=== PATIENT | female | born 1935 | race Caucasian/White ===

== ENCOUNTER 2016-06-01 11:58 | Emergency (ER) | payer MEDICARE, OTHER ==
[~2016-06-01] VITALS: Ht 152.4 cm; Wt 63.6 kg
[~2016-06-01 11:58] MED LIST: ATOR20TA38 PO; BIOT800T PO; DILT180C94 PO; ESCI10TA PO; ESOM40CA PO; FENT1PAT8 TD; FOLI-49 PO; HYDR-3720 PO; LEVO150T64 PO; PRED2.5T3 PO; PREG50CA PO; SEVE800T7 PO; VITA1TAB58 PO
[2016-06-01 12:00] VITALS: Ht 152.4 cm; Wt 63.6 kg
[2016-06-01] MEDS ORDERED: MIDAZOLAM (DRIP) 50 mg/50 mL 50 ML IV STA (12:37)
[2016-06-01] MEDS ORDERED: PROPOFOL 100 ML IV STA (12:37)
[2016-06-01 12:38] LABS: ADD SCAN DIFF NO
[2016-06-01 12:42] LABS: ABNORMAL IP MESSAGE 1; BASOPHIL # 0.1 10^3/ul (0.0-0.1); BASOPHILS % 0.6 % (0.0-2.0); EOSINOPHILS # 0.1 10^3/ul (0.0-0.5); EOSINOPHILS % 0.8 % (0.0-7.0); HEMATOCRIT 36.3 % (37.0-47.0); HEMOGLOBIN 10.1 g/dl (12.0-16.0); LYMPHOCYTES # 5.7 10^3/ul (0.8-2.9); LYMPHOCYTES % 40.8 % (15.0-51.0); MEAN CORPUSCULAR HEMOGLOBIN 32.3 pg (29.0-33.0); MEAN CORPUSCULAR HGB CONC 27.8 g/dl (32.0-37.0); MEAN PLATELET VOLUME 9.6 fl (7.4-10.4); MONOCYTE # 1.6 10^3/ul (0.3-0.9); MONOCYTES % 11.7 % (0.0-11.0); NEUTROPHIL # 6.4 10^3/ul (1.6-7.5); NEUTROPHILS % 45.7 % (39.0-77.0); PLATELET COUNT 277 10^3/UL (140-415); RED BLOOD COUNT 3.13 10^6/ul (4.20-5.40); RED CELL DISTRIBUTION WIDTH 15.7 % (11.5-14.5); WHITE BLOOD COUNT 14.1 10^3/ul (4.8-10.8)
[2016-06-01] MEDS ORDERED: EPINEPHrine 0.1 MG/ML SYG ONE ×2 (12:43→15:50)
[2016-06-01 12:49] LABS: INR 1.12; PROTIME 14.4 Sec (12.2-14.2); PT RATIO 1.1
[2016-06-01 12:50] LABS: PARTIAL THROMBOPLASTIN TIME 26.1 Sec (25.0-35.0)
[2016-06-01] MEDS ORDERED: IODIXANOL LOCM 100 ML BTL ONE ×2 (12:59→13:38)
[2016-06-01] MEDS ORDERED: SOD CHLORIDE 0.9% 100 ML ONE ×2 (12:59→13:38)
[2016-06-01] MEDS ORDERED: IODIXANOL LOCM 50 ML BTL ONE ×2 (13:00→13:38)
[2016-06-01 13:11] LABS: ALBUMIN 3.5 g/dl (3.3-4.9)
[2016-06-01 13:12] LABS: POTASSIUM 5.6 mmol/L (3.5-5.1)
--- NOTE | 2016-06-01 13:13 | RADRPT ---
PROCEDURE: XR Chest. CLINICAL INDICATION: Post intubation. TECHNIQUE: Single frontal view of the chest was obtained COMPARISON: No. FINDINGS: The soft tissues are normal. There are degenerative osteophytes in the thoracic and lumbar spine. The the heart is shifted to the left. The cardiomediastinal silhouette, pulmonary vasculature and h ilar structures are normal. There are vascular calcifications in the left-sided aorta. Attention pne umothorax is noted on the right with subcutaneous emphysema noted on the lower right chest wall. Th e left lung is opacified. The left costophrenic angle is obscured. No acute bony fracture is ident ified. IMPRESSION: 1. 75% right change in pneumothorax with shift of the cardiomediastinal silhouette to the left. 2. The endotracheal tube rests with its distal end in the right mainstem bronchus. 3. Compressive atelectasis with collapse of the left lung. 4. Subcutaneous emphysema on the lower right chest wall and in the supraclavicular areas. 5. Pneumomediastinum. 6. Atherosclerosis of the aortic arch. 7. See follow-up imaging and report performed at 06/01/2016 12:53 p.m. RPTAT:AAJJ Physician Wen Date Time Electronically viewed and signed by Physician Wen on 06/01/2016 13:13 SOTERO/
[2016-06-01 13:14] LABS: CREATININE 4.5 mg/dl (0.44-1.00)
[2016-06-01 13:15] LABS: ALBUMIN/GLOBULIN RATIO 0.94; CALCIUM 8.9 mg/dl (8.4-10.2); TOTAL PROTEIN 7.2 g/dl (6.1-8.1)
--- NOTE | 2016-06-01 13:25 | RADRPT ---
PROCEDURE: XR Chest. CLINICAL INDICATION: Status post intubation and chest tube placement. TECHNIQUE: Single frontal view of the chest was obtained COMPARISON: Chest x-ray 06/01/2016 12:41 p.m. FINDINGS: There is extensive subcutaneous emphysema across the chest and supraclavicular areas. There is norm al peritoneum with free air under the right diaphragm. There are degenerative osteophytes in the tho racic spine. The left ventricle is enlarged. There is pneumomediastinum. The previous 1000 lead i s shifted to the left with opacification of most of the left lung. There has been interval placement of a left-sided thoracostomy tube its tip at the level of the posterior seventh rib. The right elvi g is re-expanded with some persistent infiltrate and atelectasis. Lateral to the right hilum and in the right lower lobe. IMPRESSION: 1. The endotracheal tube rests with its distal end in the right mainstem bronchus and should be repo sitioned. 2. Pneumoperitoneum which may be the result of a ruptured viscus or aggressive resuscitation. Findi ngs can be further assessed with a contrast-enhanced CT scan of the chest, abdomen pelvis if clinica lly indicated. 3. Resolution of the right-sided tension pneumothorax with infiltrates in the right parahilar area right lower lobe and throughout most of the left lung which may reflect aspiration pneumonia. 4. Cardiomegaly with left ventricular enlargement. 5. Large bore central venous catheter entering from a left internal jugular approach with its tip i n the superior vena cava. 6. Extensive subcutaneous emphysema across the chest extending into the supraclavicular areas. 7. No acute bony fracture is identified. 8. There are clips in the left axilla related to prior surgery. 9. Findings were discussed with Dr. Humphries by telephone at 01:15 p.m.. RPTAT:AAJJ Physician Wen Date Time Electronically viewed and signed by Luis Fernando Acevedo Physician on 06/01/2016 13:24 SOTERO/
[2016-06-01 13:26] LABS: TROPONIN-I 0.098 ng/ml (0.00-0.12)
[2016-06-01] MEDS ORDERED: CEFTRIAXONE 2 GM/50 ML (PMX) 50 ML IVPB ONE (13:30)
[2016-06-01] MEDS ORDERED: AMIO100T4 PO (13:40)
[2016-06-01] MEDS ORDERED: POLY17PO3 PO (13:41)
[2016-06-01] MEDS ORDERED: ASCO500S2 PO (13:41)
[2016-06-01] MEDS ORDERED: DULR PR (13:42)
[2016-06-01] MEDS ORDERED: DOCU-159 PO (13:42)
[2016-06-01] MEDS ORDERED: LUTE6TAB PO (13:43)
[2016-06-01] MEDS ORDERED: MEGE20TA6 PO (13:44)
[2016-06-01] MEDS ORDERED: NEPH PO (13:45)
[2016-06-01] MEDS ORDERED: PRED5 PO (13:45)
[2016-06-01] MEDS ORDERED: PREM3 PO (13:47)
--- NOTE | 2016-06-01 14:04 | RADRPT ---
PROCEDURE: CT Brain without. CLINICAL INDICATION: Altered mental status. Evaluate for bleed. TECHNIQUE: A CT of the brain was performed on multidetector high-resolution CT scanner utilizing a xial sections from the skull base through the vertex without contrast. The scan was reviewed in sof t tissue brain and high frequency resolution bone algorithm windows. Images were reviewed on a high -resolution PACS workstation. One or more the following does reduction techniques were utilized: Aut omated exposure control, adjustment of the mA/ or kV according to patient's size, or use of iterativ e reconstruction technique. The exam CTDI = 39.64 mGy and the DLP = 554.95 mGy-cm. COMPARISON: Brain CT 10/03/2015. FINDINGS: The ventricles and sulci are mildly to moderately prominent indicative of volume loss. There is no i ntracranial hemorrhage, mass effect or midline shift. No abnormal intra-axial or extra-axial fluid collections are seen. The kirby/white matter differentiation is preserved. There are moderate to marked scattered foci of hypoattenuation in the white matter, which are nonspe cific in etiology but likely reflect chronic small vessel ischemic changes. Small old lacunar infarc ts are noted in bilateral thalami. There are moderate intracranial vascular calcifications consisten t with atherosclerosis. The visualized paranasal sinuses demonstrate persistent opacification of rig ht sphenoid sinus and interval decrease in partial opacification of left sphenoid sinus. There is sm all hyperdense foci in right sphenoid sinus which may represent fungal elements versus inspissated s ecretion. There is small air-fluid level in the left sphenoid sinus. Partial opacification of bilate ral mastoid air cells are noted. IMPRESSION: 1. No acute intracranial hemorrhage, transcortical infarction or mass effect. 2. Moderate intracranial atherosclerosis and moderate to marked chronic small vessel ischemic dawson es. 3. 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 4. Mild to moderate generalized cerebral volume loss. 5. Persistent opacification of right sphenoid sinus and interval decrease in partial opacification of left sphenoid sinus. Partial opacification of bilateral mastoid air cells. RPTAT: PP .Natalee Foley MD, Date Time Electronically viewed and signed by .Natalee Foley MD, on 06/01/2016 14:04 .N/
--- NOTE | 2016-06-01 14:49 | ERA ---
ER Documentation Chief Complaint Date/Time DATE: 06/01/16 TIME: 14:41 Chief Complaint HPI This is a 81-year-old woman with a history of renal transplantation and general debility secondary to previous gastrointestinal bleeding and anemia presenting with shortness of breath, dyspnea, hypoxia and general altered mental status from [facility]. Patient has end-stage kidney disease and is dialyzed on Wednesday, , Saturdays but was not dialyzed today. Patient was last seen normal at about 9 AM which was about 3 hours prior to arrival. Just prior to arrival her nurse found her dyspneic, altered, and short of breath and called 911, at the scene EMS states she had agonal breathing and hypoxia, they placed her on high flow oxygen with some improvement, blood sugar was checked at the scene and was normal, and patient was transported here. She never lost pulses and did not require chest compressions. Upon arrival she was altered, hypoxic, dyspneic and could not provide HPI. Further HPI provided by family member who was later at the bedside and after reviewing past medical history. ROS All systems reviewed and are negative except as per history of present illness. Medications Home Meds Reported Medications Estrogens Conjugated* (Premarin*) 0.3 Mg Tablet, 0.3 MG PO DAILY, TAB 06/01/16 Multivit/Ca Carb/B Cmplx/Fa* (Maria A-Babatunde*) 1 Tab Tab, 1 TAB PO DAILY, TAB 06/01/16 Prednisone* (Prednisone*) 5 Mg Tab, 5 MG PO QPM, TAB 06/01/16 Megestrol Acetate* (Megestrol Acetate*) 20 Mg Tablet, 10 MG PO DAILY, TAB 06/01/16 Lutein (Lutein) 6 Mg Tablet, 6 MG PO DAILY, TAB 06/01/16 Docusate Sodium* (Docusate Sodium*) 100 Mg Capsule, 100 MG PO DAILY Y for CONSTIPATION, #30 CAP 06/01/16 Bisacodyl* (Bisacodyl*) 10 Mg Supp, 10 MG ME DAILY Y for CONSTIPATION, SUPP 06/01/16 Ascorbic Acid* (Ascorbic Acid*) 500 Mg/5 Ml Syrup, 250 MG PO DAILY, #75 ML 06/01/16 Polyethylene Glycol* (Polyethylene Glycol*) 17 Gm Powd.pack, 17 GM PO DAILY, # 30 PACKET 06/01/16 Amiodarone Hcl* (Amiodarone Hcl*) 100 Mg Tablet, 100 MG PO TID, #30 TAB 06/01/16 Vitamin B Complex (B Complex) 1 Tab.sa Tablet.sa, 1 TAB.SA PO DAILY 10/01/15 Hydrocodone Bit-Acetaminophen* ([place]*) 7.5-325 Tablet, 1 TAB PO BID Y for PAIN , TAB 10/01/15 Folic Acid* (Folic Acid*) 1 Mg Tablet, 1 MG PO DAILY, TAB 10/01/15 Sevelamer Carbonate* (Renvela*) 800 Mg Tablet, 0.8 GM PO WITH MEALS, TAB 10/01/15 Esomeprazole Mag Trihydrate (Nexium) 40 Mg Capsule.dr, 40 MG PO DAILY, #30 CAP 10/01/15 Escitalopram Oxalate* (Lexapro*) 10 Mg Tablet, 10 MG PO DAILY, #30 TAB 10/01/15 Pregabalin* (Lyrica*) 50 Mg Capsule, 50 MG PO QHS, CAP 10/01/15 Levothyroxine Sodium* (Levoxyl*) 150 Mcg Tablet, 150 MCG PO BEFORE BREAKFAST, # 30 TAB 10/01/15 Discontinued Reported Medications Biotin (Biotin) 800 Mcg Tablet, 1000 MCG PO, TAB 10/01/15 Diltiazem Hcl* (Diltiazem XT) 180 Mg Capsule.er, 180 MG PO DAILY, #30 CAP 10/01/15 Prednisone* (Prednisone*) 2.5 Mg Tablet, 2.5 MG PO DAILY, TAB 10/01/15 Atorvastatin Calcium* (Atorvastatin Calcium*) 20 Mg Tablet, 20 MG PO QHS, #30 TAB 10/01/15 Fentanyl Patch* (Fentanyl Patch*) 25 Mcg/Hr Transdermal Patch, 1 PATCH TD Q72H, PATCH 10/01/15 Allergies Allergies: Coded Allergies: No Known Drug Allergies (Verified Allergy, Mild, 10/01/15) PMhx/Soc Renal transplantation, debility, previous gastrointestinal bleeding and supratherapeutic INR levels, paroxysmal atrial fibrillation, hypertension, hypothyroidism, anxiety, end-stage kidney disease hemodialyzed on Wednesday, , Saturdays, mineral bone disease, arthritis, anemia History of Surgery: No Anesthesia Reaction: No Hx Neurological Disorder: No Hx Respiratory Disorders: No Hx Cardiac Disorders: Yes (A-fib, HTN, Dyslipidemia) Hx Psychiatric Problems: No Hx Alcohol Use: No Hx Substance Use: No Hx Tobacco Use: No Smoking Status: Never smoker FmHx Family History: No diabetes Physical Exam Vitals Vital Signs Date Time Temp Pulse Resp B/P Pulse Ox O2 Delivery O2 Flow Rate FiO2 06/01/16 15:00 96 16 85/50 86 Mechanical Ventilator 06/01/16 14:45 97 16 74/52 94 Mechanical Ventilator 06/01/16 14:32 Bag Valve Mask 06/01/16 14:30 Bag Valve Mask 15 06/01/16 14:30 91 16 100/80 94 Mechanical Ventilator 06/01/16 14:00 87 16 112/60 94 Mechanical Ventilator 06/01/16 13:45 94 16 123/72 94 Mechanical Ventilator 06/01/16 13:30 89 16 152/72 94 Mechanical Ventilator 06/01/16 13:15 94 16 182/75 94 Mechanical Ventilator 06/01/16 13:00 144 15 226/79 98 Mechanical Ventilator 06/01/16 12:30 124 16 201/110 100 Mechanical Ventilator 06/01/16 12:27 128 40 238/120 100 Mechanical Ventilator 06/01/16 12:14 106 17 100 100 06/01/16 12:00 115 8 123/74 78 See nurse's notes as I have Physical Exam GENERAL: Elderly, chronically debilitated woman, dyspneic, altered mental status HEENT: Dry mucous membranes, pink conjunctiva, no cervical spine tenderness or step-off deformities, no goiter NEURO: Eyes closed, pupils equal round reactive to light, no facial asymmetry, nonverbal, no focal deficits CARDIAC: Tachycardic and regular, no murmurs rubs or gallops LUNGS: Poor breath sounds bilaterally ABDOMEN: Distended protuberant abdomen both pre-and post intubation, evidence of ventral hernia and well-healed surgical scars over the abdomen, no pulsatile mass SKIN: Warm and dry to touch, no abrasions, some ecchymosis to the right and left upper extremities dorsally EXTREMITIES: Generalized upper and lower extremity edema, callus bilaterally symmetrical, multiple surgical changes over the left proximal thigh and groin as well as the right groin. Firm catheter to the left groin, and a Prateek catheter to the left chest. PSYCH: Unable to assess Result Diagram: 06/01/16 1215 06/01/16 1210 Results 24 hrs Laboratory Tests Test 06/01/16 12:07 06/01/16 12:10 06/01/16 12:15 06/01/16 14:30 Arterial Blood HCO3 25.2mmol/L Arterial Blood Base Excess -0.2mmol/L Arterial Blood Oxygen Saturation 99.3mmHG Colby Test N/A Arterial Blood Gas Puncture Site Right Brachial Arterial Blood Carboxyhemoglobin 0.8% Arterial Blood Date Drawn 06/01/2016 2:39:49 PM Arterial Blood Methemoglobin 0.3% Arterial Blood pCO2 (Temp correct) 45.4mmhg Arterial Blood pH (Temp corrected) 7.363 Arterial Blood pO2 (Temp corrected) 408.2mmHG Blood Gas A-a O2 Differential 259.4mmHg Blood Gas Actual Respiration Rate 16 Blood Gas Low PEEP Setting 5.0cmH2O Blood Gas Modality VENT - AC Blood Gas Notified Time 06/01/2016 2:48:48 PM Blood Gas Notified Whom M.D. Blood Gas Respiration Rate 16.0 Blood Gas Specimen Source Blood arterial Blood Gas Temperature 37.0C Blood Gas Tidal Volume 500.0mL FiO2 100.0% Oxyhemoglobin Percent 98.2% Total Hemoglobin 8.2g/dl Alanine Aminotransferase (ALT/SGPT) 21IU/L Albumin 3.5g/dl Albumin/Globulin Ratio 0.94 Alkaline Phosphatase 90IU/L Anion Gap 19 Aspartate Amino Transf (AST/SGOT) 22IU/L Blood Urea Nitrogen 39mg/dl Calcium Level 8.9mg/dl Carbon Dioxide Level 32mmol/L Chloride Level 96mmol/L Creatinine 4.50mg/dl Direct Bilirubin 0.00mg/dl Globulin 3.70g/dl Glucose Level 154mg/dl Indirect Bilirubin 0.0mg/dl Lactic Acid Level 2.9mmol/L 10.1mmol/L Potassium Level 5.6mmol/L Sodium Level 141mmol/L Total Bilirubin 0.0mg/dl Total Protein 7.2g/dl Troponin I 0.098ng/ml Activated Partial Thromboplast Time 26.1Sec Basophils # 0.110^3/ul Basophils % 0.6% Eosinophils # 0.110^3/ul Eosinophils % 0.8% Hematocrit 36.3% Hemoglobin 10.1g/dl INR International Normalized Ratio 1.12 Lymphocytes # 5.710^3/ul Lymphocytes % 40.8% Mean Corpuscular Hemoglobin 32.3pg Mean Corpuscular Hemoglobin Concent 27.8g/dl Mean Corpuscular Volume 116.0fl Mean Platelet Volume 9.6fl Monocytes # 1.610^3/ul Monocytes % 11.7% Neutrophils # 6.410^3/ul Neutrophils % 45.7% Nucleated Red Blood Cells # 0.010^3/ul Nucleated Red Blood Cells % 0.0/100WBC Platelet Count 45572^3/UL Prothrombin Time 14.4Sec Prothrombin Time Ratio 1.1 Red Blood Count 3.1310^6/ul Red Cell Distribution Width 15.7% White Blood Count 14.110^3/ul Current Medications Medications (Trade) Dose Ordered Sig/Kanwal Route PRN Reason Start Time Stop Time Status Last Admin Dose Admin Propofol 100 ml @ 0 mls/hr ONCE STAT IV 06/01/16 12:37 06/01/16 12:39 DC Midazolam HCl (Versed) 50 ml @ 3 mls/hr ONCE STAT IV 06/01/16 12:37 06/02/16 05:16 Epinephrine 1 mg STK-MED ONCE .ROUTE 06/01/16 12:43 06/01/16 12:44 DC IV Flush 10 ml 10 ml STK-MED ONCE .ROUTE 06/01/16 12:59 06/01/16 13:00 DC 06/01/16 12:59 Sodium Chloride (NS) 100 ml @ ud STK-MED ONCE .ROUTE 06/01/16 12:59 06/01/16 13:00 DC 06/01/16 12:59 Iodixanol (Visipaque Locm) 100 ml STK-MED ONCE .ROUTE 06/01/16 12:59 06/01/16 13:00 DC 06/01/16 12:59 Iodixanol 50 ml 50 ml STK-MED ONCE .ROUTE 06/01/16 13:00 06/01/16 13:01 DC 06/01/16 13:00 Ceftriaxone Sodium (Rocephin) 50 ml @ 100 mls/hr ONCE ONCE IVPB 06/01/16 13:30 06/01/16 13:59 DC IV Flush 10 ml 10 ml STK-MED ONCE .ROUTE 06/01/16 13:38 06/01/16 13:39 DC 06/01/16 13:38 Sodium Chloride (NS) 100 ml @ ud STK-MED ONCE .ROUTE 06/01/16 13:38 06/01/16 13:39 DC 06/01/16 13:38 Iodixanol (Visipaque Locm) 100 ml STK-MED ONCE .ROUTE 06/01/16 13:38 06/01/16 13:39 DC 06/01/16 13:38 Iodixanol 50 ml 50 ml STK-MED ONCE .ROUTE 06/01/16 13:38 06/01/16 13:39 DC 06/01/16 13:38 Norepinephrine 250 ml @ 1.875 mls/ hr TITRATE IV 06/01/16 15:00 06/01/16 15:26 Norepinephrine (Levophed) 250 ml @ ud STK-MED ONCE .ROUTE 06/01/16 14:50 06/01/16 14:51 DC IV Flush (NS 3 ml) 3 ml PER PROTOCOL IV 06/01/16 15:30 Ondansetron HCl (Zofran Inj) 4 mg Q6H PRN IV NAUSEA AND/OR VOMITING 06/01/16 15:30 Acetaminophen (Tylenol Tab) 650 mg Q6H PRN PO PAIN LEVEL 1-3 OR FEVER 06/01/16 15:30 Acetaminophen/ Hydrocodone Bitart ([place] (5/325)) 1 tab Q6H PRN PO MODERATE PAIN LEVEL 4-6 06/01/16 15:30 Morphine Sulfate (morphine) 2 mg Q4H PRN IV SEVERE PAIN LEVEL 7-10 06/01/16 15:30 Docusate Sodium (Colace) 100 mg Q12H PRN PO CONSTIPATION 06/01/16 15:30 Magnesium Hydroxide (Milk Of Mag) 30 ml DAILY PRN PO CONSTIPATION 06/01/16 15:30 Sodium Biphosphate/ Sodium Phosphate (Fleet Enema) 133 ml DAILY PRN ME CONSTIPATION 06/01/16 15:30 Pantoprazole (Protonix Iv) 40 mg DAILY@06 IV 06/02/16 06:00 Heparin Sodium (Porcine) 5000 unit 5,000 unit Q12 SC 06/01/16 21:00 Sodium Chloride (1/2 NS) 1,000 ml @ 75 mls/hr [id number] IV 06/01/16 15:29 Lorazepam (Ativan) 0.5 mg Q6H PRN IV ANXIETY 06/01/16 15:30 Albuterol/ Ipratropium (Duoneb) 3 ml Q4H RESP THERAPY PRN HHN SHORTNESS OF BREATH 06/01/16 15:30 Vancomycin HCl (Vanco Iv Per Pharmacy) VANCOMYCIN PER PHARMACY NOTE XX 06/01/16 15:30 Hydralazine HCl (Apresoline) 10 mg Q6H PRN IV ELEVATED BLOOD PRESSURE 06/01/16 15:30 Nitroglycerin 1 tab 1 tab Q5M PRN SL ANGINA 06/01/16 15:30 Sodium Chloride 1,000 ml @ 1,000 mls/hr Q1H IV 06/01/16 15:29 06/01/16 17:28 DC Norepinephrine 250 ml @ 7.5 mls/hr PER PROTOCOL IV 06/01/16 15:30 Imipenem/ Cilastatin Sodium (Primaxin 500 Mg/ 100 ml (Pmx)) 100 ml @ 100 mls/hr Q12 IVPB 06/01/16 21:00 Insulin Aspart (Novolog Insulin Pen) NOVOLOG *MILD* ALGORITHM WITH MEALS BEDTIME SC 06/01/16 18:00 UNV Insulin Aspart (Novolog Insulin Pen) NOVOLOG *MILD* ALGORI... Q4 SC 06/01/16 17:00 Miscellaneous Information (* Miscellaneous Pharmacy Order) HYPOGLYCEMIA PROTOCOL w... ONCE ONCE XX 06/01/16 15:30 06/01/16 16:08 DC Miscellaneous Information (* Miscellaneous Pharmacy Order) Discontinue Glyburide, Glipizide,... ONCE ONCE XX 06/01/16 15:30 06/01/16 16:08 DC Miscellaneous Information (* Miscellaneous Pharmacy Order) Discontinue all previ... ONCE ONCE XX 06/01/16 15:30 06/01/16 16:08 DC Amiodarone HCl (Cordarone) 100 mg TID PO 06/01/16 21:00 Ascorbic Acid (Vitamin C) 250 mg DAILY PO 06/02/16 09:00 Bisacodyl (Dulcolax Supp) 10 mg DAILY PRN ME CONSTIPATION 06/01/16 15:30 Escitalopram Oxalate (Lexapro) 10 mg DAILY PO 06/02/16 09:00 Folic Acid (Folic Acid) 1 mg DAILY PO 06/02/16 09:00 Levothyroxine Sodium (Synthroid) 150 mcg BEFORE BREAKFAST PO 06/02/16 07:00 Multivit/Ca Carb/ B Cmplx/FA/Prenat (Maria A-Babatunde) 1 tab DAILY PO 06/02/16 09:00 Polyethylene Glycol (Miralax) 17 gm DAILY PO 06/02/16 09:00 Prednisone (Prednisone) 5 mg QPM PO 06/01/16 21:00 Pregabalin (Lyrica) 50 mg QHS PO 06/01/16 21:00 Sevelamer Carbonate (Renvela) 0.8 gm WITH MEALS PO 06/01/16 18:00 Epinephrine 1 mg STK-MED ONCE .ROUTE 06/01/16 15:50 06/01/16 15:51 DC Miscellaneous Information 1 ea NOTE XX 06/01/16 16:30 Glucose (Glutose) 15 gm Q15M PRN PO DECREASED GLUCOSE 06/01/16 16:30 Glucose (Glutose) 22.5 gm Q15M PRN PO DECREASED GLUCOSE 06/01/16 16:30 Dextrose (D50w Syringe) 25 ml Q15M PRN IV DECREASED GLUCOSE 06/01/16 16:30 Dextrose (D50w Syringe) 50 ml Q15M PRN IV DECREASED GLUCOSE 06/01/16 16:30 Glucagon (Glucagen) 1 mg Q15M PRN IM DECREASED GLUCOSE 06/01/16 16:30 Glucose 15 gm 15 gm Q15M PRN BUCCAL DECREASED GLUCOSE 06/01/16 16:30 Vancomycin HCl (Vancocin) 250 ml @ 125 mls/hr ONCE IVPB 06/01/16 16:30 06/01/16 18:29 Procedures/MDM IV line was established patient was placed on cardiac catheterization technician. Rhythm strip revealed a wide complex tachycardia at about 120 bpm. Patient was afebrile and altered. Given the patient's presentation at home and here in the ED I made the decision to intubate the patient. Endotracheal Intubation by me: Pre assessment performed. See preceding note for details. Pre-oxygenation performed with 100% oxygen RSI: Performed with etomidate 20 mg IV 1 Blade: Mac 4 ET Tube: 7.5 cm Depth: 25 cm at the lip Intubation confirmed by colorimetric CO2, poor breath sounds bilaterally. Shortly after intubation I noted bright blood in the ET tube and it became obvious the ET tube dislodged. I placed an oral airway and then began positive pressure ventilation using high flow oxygen and BVM to assist breathing and ventilation. Patient's hypoxia continued momentarily and she did developed worsening abdominal distention. I reintubated the patient successfully and placed a 7.0 cm ET tube, initially again at 25 cm depth which was later pulled back to 23 centimeters depth. Endotracheal Intubation by me: Pre assessment performed. See preceding note for details. Pre-oxygenation performed with 100% oxygen RSI: Performed w/o complication or hypoxic events. Medications as ordered. Blade: Mac 4 ET Tube: 7 cm Depth: 25 cm at the lip Intubation confirmed by colorimetric CO2, rhonchorous breath sounds bilaterally. EKG #1 performed, read by me revealed a wide-complex atrial fibrillation with rapid ventricular rate 111 bpm, left axis deviation and a right bundle branch block, QRS duration 152 ms, no concerning ST elevations or depressions noted. Shortly after intubating the patient she lost pulses and became bradycardic and developed pulseless electrical activity. I ordered high-quality chest compressions and immediately began advanced cardiac life support. She was given 3 doses of epinephrine 1 mg IV each. Please refer to the first resuscitation log for full list of medication, times, and dosages. She regained strong pulses and a good blood pressure. She was able to open her eyes and had movement of the upper and lower extremities. She is not a candidate for hypothermia protocol. After she got her initial ED chest x-ray, she was rushed to the radiology department for CT imaging. Chest X-ray 1V Interpreted by me: Intubated the right mainstem bronchus. There is air under the right hemidiaphragm and a very large right tension pneumothorax with both tracheal and mediastinal deviation to the left. There is also noted to be pneumomediastinum consistent with recent pneumothorax. Chest Tube Placement by me: Patient consented, sterilely draped, full prep, gown, glove, mask, time out performed. Anesthesia: None Location: Mid-Anterior right axillary Line, approximate 5th intercostal Device: 36 Kiswahili chest tube Technique: Vertical incision, blunt dissection above the superior rib border , tactile confirmation Results: Chest tube fogging and about 500 cc of straw-colored pleural fluid was obtained with a large gush of air, which was obviously under tension. Secured with suture and taping. No complications. Attached to [facility]. EKG #2 post intubation, resuscitation, and chest tube placement performed, read by me revealed an atrial fibrillation with rapid ventricular rate at 114 bpm, left axis deviation and a right bundle branch block, no concerning ST elevations or depressions noted. Chest X-ray, post intubation and post tube thoracostomy placement 1V Interpreted by me: Pneumothorax diminished to 3 cm on the right side, chest tube in pleural space facing cephalad. Bilateral lower pulmonary infiltrates were noted by me Normal soft tissue. ET tube was in the right mainstem bronchus, there was good reexpansion of the right lung, and mediastinal structures were in the center of the chest. CBC revealed a leukocytosis otherwise unremarkable, electrolytes revealed renal failure and mild hyperkalemia 5.6, liver function tests were unremarkable, troponin was negative, coagulation profile was unremarkable with an INR of 1.1. ABG post intubation and while on mechanical ventilator prior to cardiac arrest revealed a pH of 7.36, PCO2 45, PO2 [address] scan of the brain was negative for acute bleed mass or shift. Please refer to radiologist dictation for full report. I consulted the cardiothoracic surgeon Dr. Crespo after chest tube was placed and secured, we spoke about the patient's presentation and symptomatology and possible pulmonary embolism diagnosis. He kindly agreed to consult the patient and manage the chest tube. CT angiogram of the chest was performed that was negative for pulmonary embolism or aortic injury. Please refer to radiologist dictation for full report. I also immediately consulted general surgeon director of recruitment and admissions Dr. Jolly, initial call placed at 1500, given my suspicion for severe pneumoperitoneum and possible bowel perforation. CT scan of the abdomen and pelvis with IV contrast was performed which revealed multiple findings including massive tension pneumoperitoneum with compression of the IVC. There was also severe diffuse pneumomediastinum and air dissecting into the retroperitoneum. 2 separate radiologist did review this CT scan images and they could not find bowel perforation and suspected that her large pneumothorax dissected through the subcutaneous tissue of the chest and abdomen and caused this tension pneumoperitoneum. Please refer to radiologist dictation for full report. Patient was admitted to the hospitalist team to the intensive care unit. Medical management and decision making all continued down here in the emergency department and was directed by me. I also consulted the social and political studies professor Dr. Garcia regarding the patient's presentation and symptomatology, given the patient's IV contrast dye load I recommended emergent hemodialysis and he agreed. He kindly agreed to hemodialyzed the patient once her condition stabilizes. Multiple calls were placed to the general surgeon director of recruitment and admissions, I also attempted speaking with other affiliated general surgeons regarding the patient's current condition and need for open laparotomy. Third EKG was performed, read by me revealed a sinus rhythm at 67 bpm with a first-degree atrioventricular block and a right bundle branch block, left axis deviation, no concerning ST elevations or depressions noted. Central Line Placement by me: Patient consented, sterilely draped, full prep, gown, glove, mask, time out performed. Anesthesia: 1% lidocaine locally Location: Right femoral vein Device: Multiple lumen Technique: Seldinger technique. Secured with suture. Results: Venous return from all ports with easy saline flush. No complications. The entire guide wire retrieved and disposed of. While waiting for general surgery's input patient developed slow pulseless electrical activity and required another rounded of advanced cardiac life support and continued high-quality chest compressions. Initial most dominant rhythm throughout this cardiac arrest was pulseless electrical activity with a slow rate of about 30-50 complexes per minute. I treated medically with multiple doses of epinephrine. Please refer to the resuscitation log for full list of medications, times, and dosages. Bedside ED Ultrasound was performed during advanced cardiac life support although images were unobtainable as patient had significant pneumomediastinum and free subcutaneous air along the chest. Needle decompression was performed by me at the bedside during resuscitation with the large 18-gauge needle catheter. There is large volume air removed and abdominal distention and protuberance improved, although she remained in PEA and was ultimately pronounced by me at 1620 June 01, 2016. I did speak to the on-call surgeon while in route regarding the patient's presentation, symptomatology, and multiple CT scan findings. He recommended prior to the OR we attempt abdominal needle decompression near or at the umbilicus. On-call general surgeon came to the emergency department for emergent open laparotomy although patient was pronounced just prior to his arrival. Critical Care: Time: 90 minutes, this was time separate from other procedures. Treatments/Evaluations: Close monitoring and treatment of unstable vital signs, cardiorespiratory, and neurologic status, while maintaining tight balance of fluid, respiratory, and cardiac interventions. Departure Diagnosis: Primary Impression: Cardiac arrest Additional Impressions: Pneumothorax Qualified Code: J93.0 - Spontaneous tension pneumothorax Pneumomediastinum Pneumoperitoneum Respiratory failure Qualified Code: J96.01 - Acute respiratory failure with hypoxia and hypercapnia End stage kidney disease Condition: Critical JOHN ALLEN MD Jun 01, 2016 14:49
[2016-06-01] MEDS ORDERED: NORepinephrine 8MG/250 ML (PMX 250 ML ONE (14:50)
[2016-06-01 15:00] VITALS: BP 85/50; PULSE 96; RESP 16
[2016-06-01] MEDS ORDERED: NORepinephrine 8MG/250 ML (PMX 250 ML IV SCH ×2 (15:00→15:30)
--- NOTE | 2016-06-01 15:07 | RADRPT ---
PROCEDURE: CTA Chest. CLINICAL INDICATION: Evaluate for pulmonary embolism. TECHNIQUE: The study was performed utilizing a high-resolution multidetector CT scanner. Direct sp iral 1.25 mm axial sections were obtained from the thoracic inlet to the upper abdomen with the use of 125 cc of the CP 11/06/2019 nonionic intravenous contrast material and reformatted at 3 mm. Coron al reformations were obtained. The images were reviewed on a PACS workstation. CTDI: 42.25 and DLP: 1107.7 One or more of the following dose reduction techniques were used: - Automated exposure control. - Adjustment of the mA and/or kV according to patient size. Use of iterative reconstruction technique. COMPARISON: Chest x-ray 06/01/2016 12:53 p.m. FINDINGS: The main pulmonary artery and pulmonary artery outflow tracts are patent with no central o r segmental pulmonary emboli identified. The heart is mildly enlarged. No pericardial effusion is present. The pulmonary vasculature is normal. There are vascular calcifications in the thoracic and upper abdominal aorta without evidence of an a ortic aneurysm. A central venous catheter enters from a left internal jugular approach with its tip in the superior vena cava. There is a loculated left pleural effusion. There is a right-sided chest tube entering the posterior right axillary line projecting superior to the right diaphragm. There is a residual 10% pneumothorax. There is a 1 mm calcified nodule in the medial aspect of the superior segment of the right lower lobe. There ground-glass infiltrates in t he right lung. There is a wedge shaped peripheral density in the dorsal periphery of the right middle lobe. This li cheikh represents atelectasis. There are additional areas of peripheral atelectasis in the right lower lobe. There is pneumomediastinum. There is extensive subcutaneous emphysema across the chest. There is an endotracheal tube in place with its distal to the still lies in the right mainstem bronc hus. This should be repositioned. There are bronchograms and infiltrate in the left lower lobe. There is a moderate size hiatal hernia. No enlarged mediastinal or hilar lymph nodes are identified. No enlarged axillary or supraclavicula r lymph nodes are identified. There is pneumoperitoneum. There is an air-fluid level adjacent to the right lobe of the liver. The spleen is unremarkable. There is a partially visualized small left kidney with a 1.4 cm partially visualized benign cyst in the dorsal upper third of the left kidney. There are additional smaller benign cysts seen in the up per half of the left kidney. The right kidney is only partially visualized with no focal mass noted . The adrenal glands are unremarkable. The bony elements are normal. IMPRESSION: 1. The extensive subcutaneous emphysema is noted across the chest extending into the supraclavicula r areas with a right-sided thoracostomy tube identified with its tip superior to the right diaphragm . There is an associated 10% right-sided pneumothorax. 2. There is a loculated right pleural effusion with consolidative infiltrate and a air bronchograms suspicious for aspiration pneumonia in the left lower lobe. 3. Pneumomediastinum. 4. No central or segmental pulmonary emboli identified. 5. Moderate size hiatal hernia. 6. Pneumoperitoneum. The exact cause is unclear from this study. 7. Small scarred left kidney with benign cyst in the upper third of the left kidney. 8. Mild cardiomegaly. 9. Atherosclerotic vascular disease. 10. The endotracheal tube is not placed in the right mainstem bronchus. 11. A large bore central venous catheter enters from a left internal jugular approach with its tip in the superior vena cava. Findings were phoned to Dr. Boyd immediately following interpretati on of the study at 03:00 p.m.. RPTAT:AAJJ Physician Wen Date Time Electronically viewed and signed by Physician Wen on 06/01/2016 15:07 JM/
[2016-06-01] MEDS ORDERED: SOD CHLORIDE 0.45% 1,000 ML IV SCH (15:29)
[2016-06-01] MEDS ORDERED: SOD CHLORIDE 0.9% 1,000 ML IV SCH (15:29)
[2016-06-01] MEDS ORDERED: NA PHOSPHATE/BIPHOS 133 ML ENEMA PR PRN (15:30)
[2016-06-01] MEDS ORDERED: HYDROCODONE/APAP (5/325) TAB PO PRN (15:30)
[2016-06-01] MEDS ORDERED: DOCUSATE SODIUM 100 MG CAP PO PRN (15:30)
[2016-06-01] MEDS ORDERED: morphine 2 MG INJ IV PRN (15:30)
[2016-06-01] MEDS ORDERED: ALBUTEROL/IPRATROPIUM (NEB) 3 ML AMP HHN PRN (15:30)
[2016-06-01] MEDS ORDERED: NITROGLYCERIN (SL) 0.4 MG TAB SL PRN (15:30)
[2016-06-01] MEDS ORDERED: ACETAMINOPHEN 325 MG TAB PO PRN (15:30)
[2016-06-01] MEDS ORDERED: hydrALAzine 20 MG INJ IV PRN (15:30)
[2016-06-01] MEDS ORDERED: MAGNESIUM HYDROXIDE 30ML CUP PO PRN (15:30)
[2016-06-01] MEDS ORDERED: NACL 0.9% 3 ML SYG IV SCH (15:30)
[2016-06-01] MEDS ORDERED: LORAZEPAM 2 MG INJ IV PRN (15:30)
[2016-06-01] MEDS ORDERED: ONDANSETRON 4 MG INJ IV PRN (15:30)
[2016-06-01] MEDS ORDERED: VANCOMYCIN IV PER PHARMACY XX SCH (15:30)
[2016-06-01] MEDS ORDERED: BISACODYL 10 MG SUPP PR PRN (15:30)
--- NOTE | 2016-06-01 15:36 | RADRPT ---
PROCEDURE: CT Abdomen and Pelvis with contrast. CLINICAL INDICATION: Abdominal distension. TECHNIQUE: Multiple contiguous axial CT images of the abdomen and pelvis were obtained following t he administration of 125 cc of Visipaque 320. Coronal and sagittal reconstructions were also perfor med. CTDIvol (mGy): 42.25, 11.19, 12.04; Total Exam DLP (mGy-cm): 1107.72. One or more of the following dose reduction techniques were utilized: - Automated exposure control. - Adjustment of the mA and/or kV according to patient size. - Use of iterative reconstruction technique. COMPARISON: Chest x-ray 06/01/2016. CT pelvis 02/04/2016. Barium enema 10/04/2015. CT abdomen/pe lvis 10/02/2015. FINDINGS: Limited imaging of the lower thorax demonstrates a small residual pneumothorax. A right chest tube is in place. There is a small moderate left pleural effusion. Diffuse pneumomediastinum is observe d. Massive subcutaneous emphysema of the chest wall is present. Massive pneumoperitoneum is present. Mass effect upon the abdominal viscera and IVC is observed. R etroperitoneal air is also present. The stomach is collapsed. The small intestines are unremarkabl e. The liver and spleen are unremarkable. Mild gallbladder wall edema is observed. The pancreas i s unremarkable. Mild hyperenhancement of the adrenal glands is present. Small multicystic kidneys are present. There is no hydronephrosis. The abdominal aorta is normal in caliber with atherosclerotic calcification. A moderate hiatal hernia is present. A right lower quadrant renal transplant is present. There is a left lateral abdominal wall hernia containing numerous loops of small intestines along with a porti on of the descending colon. The hernia is unchanged from prior examination. There is no associated intestinal obstruction. Free air are seen within the hernia sac. The bladder is collapsed. The uterus and adnexa are unremarkable. Lumbar spinal fusion hardware is in place. Subcutaneous emphysema of the body wall is present. IMPRESSION: Massive pneumoperitoneum. Mass effect upon the abdominal viscera and IVC is observed. Correlate fo r additional signs of tension pneumoperitoneum. Imaging findings may be a result of dissection of ai r from pneumothorax/pneumomediastinum. Right chest tube with small residual pneumothorax. Pneumomediastinum with air dissecting into the r etroperitoneum is also present along with massive subcutaneous emphysema of the chest and abdomen. Critical results discussed with Dr. Humphries at approximately 1530 hours. RPTAT: HLST .Autumn Hoffmann MD, Date Time Electronically viewed and signed by .Autumn Hoffmann MD, on 06/01/2016 15:35 .T/
--- NOTE | 2016-06-01 15:59 | CONS ---
Date/Time of Note Date/Time of Note DATE: 06/01/16 TIME: 15:53 Assessment/Plan Assessment/Plan Additional Assessment/Plan Chest x-ray was reviewed from today prior to placement of chest tube which is showing a total right pneumothorax. CT chest was reviewed also which is showing pneumoperitoneum as well as pneumothorax on the right side chest x-ray was reviewed post intubation as well as post chest tube placement which is showing good reexpansion of the right lung. Assessment recommendations; 1. Patient admitted with cardiac arrest underwent prolonged CPR. 2. Severe hypotension on high-dose pressor support. Patient adequately fluid resuscitated. 3. History of end-stage renal disease on hemodialysis. Finish dialysis session early this morning. 4. History of hypertension. 5. Pneumoperitoneum likely tracking of air from the pneumothorax. 6. At this point it is difficult to ascertain any degree of hypoxic brain injury. Continue current supportive care. Continue current ventilator settings. Perform an ABG in about an hour. Initial ABG was reviewed patient is not exhibiting any severe metabolic acidosis. Continue broad-spectrum antibiotic coverage. Surgical consult as well as nephrology consult is pending. Prognosis is extremely poor. I did have a detailed discussion with patient's son in the emergency room and apprised him of her condition. Consultation Date/Type/Reason Admit Date/Time Date of Consultation: Jun 01, 2016 Type of Consultation: Pulmonary/critical care Reason for Consultation Pulmonary critical care consultation obtained for management of severe shock and respiratory failure. History presenting; patient is a 78-year-old lady who was brought in via EMS to the hospital after the patient was found unresponsive at home EMS were called and patient did not have a pulse CPR was initiated and was continued en route to the hospital. According to medical records it lasted a good 20-30 minutes. Patient also had a second episode of cardiac arrest requiring another bleed CPR with revival of vital signs. A chest x-ray was done which showed a total right pneumothorax subsequent to chest tube was placed in. Patient also developed significant pneumoperitoneum. For the time I saw the patient the patient is orally intubated and has fixed dilated pupils. Right-sided chest tube is in place. Patient is completely unresponsive. Maintained on high-dose pressor support. Past medical history; 1. History of renal failure on hemodialysis. Patient had hemodialysis early this morning. 2. History of apparent renal transplant. Next 3. History of laparotomy. 4. History of hypertension. Medications; were reviewed. Allergies; none. Social history; noncontributory. Family history; patient has 3 children she lives by herself. Occupational history; not available. Review of systems; currently not available. General examination; elderly lady, or intubated unresponsive. Social History Smoking Status: Never smoker Exam/Review of Systems Vital Signs Vitals Vital Signs Date Time Temp Pulse Resp B/P Pulse Ox O2 Delivery O2 Flow Rate FiO2 06/01/16 12:00 115 8 123/74 78 Exam HEENT examination; supple neck, positive JVD. No lymphadenopathy. Orally intubated. Pupils are dilated and fixed. Patient does have multiple carious teeth. No neck masses felt. Chest examination; diminished breath sounds throughout. There is bilateral sub- cutaneous emphysema involving the chest wall. Right-sided chest tube is in place. S1-S2 audible, no murmurs. Regular rhythm. Abdomen examination; protuberant, multiple well-healed scars are present. There is a sub-cutaneous emphysema felt along the anterior abdominal wall. Bowel sounds are absent. Extremity examination; patient has extensive ecchymosis involving all 4 extremities. Pulses are palpable. INDUSTRIAL RENDERER examination; patient is unresponsive. Results Result Diagram: 06/01/16 1215 06/01/16 1210 Results 24 hrs Laboratory Tests Test 06/01/16 12:10 06/01/16 12:15 06/01/16 14:30 Alanine Aminotransferase (ALT/SGPT) 21 Albumin 3.5 Albumin/Globulin Ratio 0.94 Alkaline Phosphatase 90 Anion Gap 19 H Aspartate Amino Transf (AST/SGOT) 22 Blood Urea Nitrogen 39 H Calcium Level 8.9 Carbon Dioxide Level 32 H Chloride Level 96 L Creatinine 4.50 H Direct Bilirubin 0.00 Globulin 3.70 H Glucose Level 154 Indirect Bilirubin 0.0 Lactic Acid Level 2.9 H 10.1 *H Potassium Level 5.6 H Sodium Level 141 Total Bilirubin 0.0 L Total Protein 7.2 Troponin I 0.098 Activated Partial Thromboplast Time 26.1 Basophils # 0.1 Basophils % 0.6 Eosinophils # 0.1 Eosinophils % 0.8 Hematocrit 36.3 #L Hemoglobin 10.1 #L INR International Normalized Ratio 1.12 Lymphocytes # 5.7 H Lymphocytes % 40.8 Mean Corpuscular Hemoglobin 32.3 Mean Corpuscular Hemoglobin Concent 27.8 L Mean Corpuscular Volume 116.0 #H Mean Platelet Volume 9.6 # Monocytes # 1.6 H Monocytes % 11.7 H Neutrophils # 6.4 Neutrophils % 45.7 Nucleated Red Blood Cells # 0.0 Nucleated Red Blood Cells % 0.0 Platelet Count 277 Prothrombin Time 14.4 H Prothrombin Time Ratio 1.1 Red Blood Count 3.13 #L Red Cell Distribution Width 15.7 H White Blood Count 14.1 #H Medications Medications Current Medications Norepinephrine (Levophed) 250 ml @ 1.875 mls/ hr TITRATE IV Last administered on 06/01/16t 15:26; Admin Dose 1.875 MLS/HR; Start 06/01/16 at 15:00 Ondansetron HCl (Zofran Inj) 4 mg Q6H PRN IV NAUSEA AND/OR VOMITING; Start at 15:30; Status UNV Acetaminophen (Tylenol Tab) 650 mg Q6H PRN PO PAIN LEVEL 1-3 OR FEVER; Start at 15:30; Status UNV Acetaminophen/ Hydrocodone Bitart (Brandt (5/325)) 1 tab Q6H PRN PO MODERATE PAIN LEVEL 4-6; Start 06/01/16 at 15:30; Status UNV Morphine Sulfate (morphine) 2 mg Q4H PRN IV SEVERE PAIN LEVEL 7-10; Start 06/01 at 15:30; Status UNV Docusate Sodium (Colace) 100 mg Q12H PRN PO CONSTIPATION; Start 06/01/16 at 15: 30; Status UNV Magnesium Hydroxide (Milk Of Mag) 30 ml DAILY PRN PO CONSTIPATION; Start at 15:30; Status UNV Sodium Biphosphate/ Sodium Phosphate (Fleet Enema) 133 ml DAILY PRN LA CONSTIPATION; Start 06/01/16 at 15:30; Status UNV Pantoprazole (Protonix Iv) 40 mg DAILY@06 IV ; Start 06/02/16 at 06:00; Status UNV Heparin Sodium (Porcine) 5000 unit 5,000 unit Q12 SC ; Start 06/01/16 at 21:00; Status UNV Sodium Chloride (1/2 NS) 1,000 ml @ 75 mls/hr [id number] IV ; Start 06/01/16 at 15 :29; Status UNV Lorazepam (Ativan) 0.5 mg Q6H PRN IV ANXIETY; Start 06/01/16 at 15:30; Status UNV Vancomycin HCl (Vanco Iv Per Pharmacy) VANCOMYCIN PER PHARMACY NOTE XX ; Start 06/01/16 at 15:30; Status UNV Hydralazine HCl (Apresoline) 10 mg Q6H PRN IV ELEVATED BLOOD PRESSURE; Start at 15:30; Status UNV Nitroglycerin 1 tab 1 tab Q5M PRN SL ANGINA; Start 06/01/16 at 15:30; Status UNV Sodium Chloride 1,000 ml @ 1,000 mls/hr Q1H IV ; Start 06/01/16 at 15:29; Stop 06/01/16 at 17:28; Status UNV Imipenem/ Cilastatin Sodium (Primaxin 500 Mg/ 100 ml (Pmx)) 100 ml @ 100 mls/ hr Q6 IVPB ; Start 06/01/16 at 18:00; Status UNV Insulin Aspart (Novolog Insulin Pen) NOVOLOG *MILD* ALGORI... Q4 SC ; Start at 17:00; Status UNV Miscellaneous Information (* Miscellaneous Pharmacy Order) HYPOGLYCEMIA PROTOCOL w... ONCE ONCE XX ; Start 06/01/16 at 15:30; Stop 06/01/16 at 15:31; Status UNV Miscellaneous Information (* Miscellaneous Pharmacy Order) Discontinue Glyburide , Glipizide,... ONCE ONCE XX ; Start 06/01/16 at 15:30; Stop 06/01/16 at 15:31 ; Status UNV Miscellaneous Information (* Miscellaneous Pharmacy Order) Discontinue all previ... ONCE ONCE XX ; Start 06/01/16 at 15:30; Stop 06/01/16 at 15:31; Status UNV Amiodarone HCl (Cordarone) 100 mg TID PO ; Start 06/01/16 at 21:00; Status UNV Ascorbic Acid (Vitamin C) 250 mg DAILY PO ; Start 06/02/16 at 09:00; Status UNV Bisacodyl (Dulcolax Supp) 10 mg DAILY PRN LA CONSTIPATION; Start 06/01/16 at 15 :30; Status UNV Escitalopram Oxalate (Lexapro) 10 mg DAILY PO ; Start 06/02/16 at 09:00; Status UNV Folic Acid (Folic Acid) 1 mg DAILY PO ; Start 06/02/16 at 09:00; Status UNV Multivit/Ca Carb/ B Cmplx/FA/Prenat (Maria A-Babatunde) 1 tab DAILY PO ; Start 06/02/16 at 09:00; Status UNV Polyethylene Glycol (Miralax) 17 gm DAILY PO ; Start 06/02/16 at 09:00; Status UNV Prednisone (Prednisone) 5 mg QPM PO ; Start 06/01/16 at 21:00; Status UNV Pregabalin (Lyrica) 50 mg QHS PO ; Start 06/01/16 at 21:00; Status UNV CHRISTIANO MUKHERJEE Jun 01, 2016 15:59
--- NOTE | 2016-06-01 16:15 | RADRPT ---
PROCEDURE: XR Chest. CLINICAL INDICATION: Endotracheal tube position check. TECHNIQUE: Single frontal view of the chest was obtained COMPARISON: Chest x-ray 06/01/2016. FINDINGS: The endotracheal tube is not well positioned at T5. No other interval changes are noted. IMPRESSION: 1. Endotracheal tube is well-positioned at T5 about 2 cm superior to the samuel. 2. Otherwise, stable chest x-ray. RPTAT:AAJJ Physician Wen Date Time Electronically viewed and signed by Luis Fernando Acevedo Physician on 06/01/2016 16:15 SOTERO/
--- NOTE | 2016-06-01 16:15 | RADRPT ---
PROCEDURE: XR Chest. CLINICAL INDICATION: Status post intubation. TECHNIQUE: Single frontal view of the chest was obtained COMPARISON: Chest x-ray 06/01/2016 12:53 p.m. FINDINGS: The endotracheal tube should be withdrawn about 4 cm for better positioning near T3. The rest with its distal end in the right mainstem bronchus at this time. Heart is enlarged. The left lung is pa rtially regenerated with persistent bilateral perihilar infiltrates present. There is consolidative infiltrate in the left lower lobe. There is a right-sided thoracostomy tube in place. There is a large bore central venous catheter. The heart is enlarged. There is subcutaneous emphysema across the chest and neck. IMPRESSION: 1. The endotracheal tube should be withdrawn 45 cm for better positioning near T3. 2. Subcutaneous emphysema. 3. The thoracostomy tube remains in good position with a 3% right lateral pneumothorax. 4. Interval decrease in the size of the left pleural effusion with persistent consolidative infiltr ate in the left lower lobe and bilateral perihilar interstitial infiltrates still present. 5. An NG tube is well positioned distal to the GE junction. 6. Pneumoperitoneum. 7. The large bore central venous catheter is in good position in the superior vena cava. RPTAT:AAJJ Physician Wen Date Time Electronically viewed and signed by Physician Wen on 06/01/2016 16:14 SOTERO/
[2016-06-01] MEDS ORDERED: GLUCOSE GEL 15 GRAM TUBE PO PRN ×2 (16:30)
[2016-06-01] MEDS ORDERED: VANCOMYCIN 1 GM in NS 250 ML IVPB SCH (16:30)
[2016-06-01] MEDS ORDERED: DEXTROSE 50% 50 ML SYRINGE IV PRN ×2 (16:30)
[2016-06-01] MEDS ORDERED: GLUCAGON 1 MG INJ IM PRN (16:30)
[2016-06-01] MEDS ORDERED: GLUCOSE GEL 15 GRAM TUBE BUCCAL PRN (16:30)
[2016-06-01] MEDS ORDERED: INSULIN ASPART [NOVOLOG] 3 ML PEN SC SCH ×2 (17:00→18:00)
[2016-06-01 17:10] LABS: AADO2 Arterial 259.4 mmHg (7.0-24.0); Arterial Base Excess -0.2 mmol/L (-3.0-3); Arterial COHb 0.8 % (0.0-3.0); Arterial Fraction of Oxyhgb 98.2 % (93.0-99.0); Arterial HCO3 25.2 mmol/L (22.0-26.0); Arterial MetHb 0.3 % (0.0-1.5); Arterial Total Hemglobin 8.2 g/dl (12.0-18.0); MODE VENT - AC
[2016-06-01] MEDS ORDERED: SEVELAMER CARBONATE 0.8 GM PKT PO SCH (18:00)
--- NOTE | 2016-06-01 18:51 | DES ---
Date/Time of Note Date/Time of Note DATE: 06/01/16 TIME: 18:45 Discharge/ Summary Admission/Discharge Info Admit Date/Time Discharge Date/Time Final Diagnosis 1. Cardiac arrest 2. Pneumothorax 3. Spontaneous tension pneumothorax 4. Pneumomediastinum 5. Pneumoperitoneum 6. Acute respiratory failure with hypoxia and hypercapnia 7. End stage kidney disease 8. Hx of GI bleed 9. a fib 10. hypothyroidism 11. Hx of renal transplant 12. OA Preliminary Cause of 1. cardiac arrest (minutes) 2. respiratory failure (hours) Hospital Course 78-year-old lady who was brought in via EMS to the hospital after the patient was found unresponsive at home EMS were called and patient did not have a pulse CPR was initiated and was continued en route to the hospital. According to medical records it lasted a good 20-30 minutes. Patient also had a second episode of cardiac arrest requiring another bleed CPR with revival of vital signs. A chest x-ray was done which showed a total right pneumothorax subsequent to chest tube was placed in. Patient also developed significant pneumoperitoneum. Patient was orally intubated and had fixed dilated pupils. Right-sided chest tube was in place. Patient was completely unresponsive. Maintained on high-dose pressor support. She unfortunately went into cardiac arrest and at 16:20 on 06/01/2016. Pending Labs/Cultures Laboratory Tests Test 06/01/16 12:07 06/01/16 12:10 06/01/16 12:15 06/01/16 14:30 Arterial Blood HCO3 25.2mmol/L (22.0-26.0) Arterial Blood Base Excess -0.2mmol/L (-3.0-3) Arterial Blood Oxygen Saturation 99.3mmHG (95.0-100.0) Colby Test N/A Arterial Blood Gas Puncture Site Right Brachial Arterial Blood Carboxyhemoglobin 0.8% (0.0-3.0) Arterial Blood Date Drawn 06/01/2016 2:39:49 PM Arterial Blood Methemoglobin 0.3% (0.0-1.5) Arterial Blood pCO2 (Temp correct) 45.4mmhg (35-45) Arterial Blood pH (Temp corrected) 7.363 (7.350-7.450) Arterial Blood pO2 (Temp corrected) 408.2mmHG (80-90.0) Blood Gas A-a O2 Differential 259.4mmHg (7.0-24.0) Blood Gas Actual Respiration Rate 16 Blood Gas Low PEEP Setting 5.0cmH2O Blood Gas Modality VENT - AC Blood Gas Notified Time 06/01/2016 2:48:48 PM Blood Gas Notified Whom M.D. Blood Gas Respiration Rate 16.0 Blood Gas Specimen Source Blood arterial Blood Gas Temperature 37.0C Blood Gas Tidal Volume 500.0mL FiO2 100.0% Oxyhemoglobin Percent 98.2% (93.0-99.0) Total Hemoglobin 8.2g/dl (12.0-18.0) Alanine Aminotransferase (ALT/SGPT) 21IU/L (13-69) Albumin 3.5g/dl (3.3-4.9) Albumin/Globulin Ratio 0.94 Alkaline Phosphatase 90IU/L (42-121) Anion Gap 19 (8-16) Aspartate Amino Transf (AST/SGOT) 22IU/L (15-46) Blood Urea Nitrogen 39mg/dl (7-20) Calcium Level 8.9mg/dl (8.4-10.2) Carbon Dioxide Level 32mmol/L (21-31) Chloride Level 96mmol/L (97-110) Creatinine 4.50mg/dl (0.44-1.00) Direct Bilirubin 0.00mg/dl (0.00-0.20) Globulin 3.70g/dl (1.3-3.2) Glucose Level 154mg/dl (70-220) Indirect Bilirubin 0.0mg/dl (0-1.1) Lactic Acid Level 2.9mmol/L (0.5-2.2) 10.1mmol/L (0.5-2.2) Potassium Level 5.6mmol/L (3.5-5.1) Sodium Level 141mmol/L (135-144) Total Bilirubin 0.0mg/dl (0.2-1.3) Total Protein 7.2g/dl (6.1-8.1) Troponin I 0.098ng/ml (0.00-0.12) Activated Partial Thromboplast Time 26.1Sec (25.0-35.0) Basophils # 0.110^3/ul (0.0-0.1) Basophils % 0.6% (0.0-2.0) Eosinophils # 0.110^3/ul (0.0-0.5) Eosinophils % 0.8% (0.0-7.0) Hematocrit 36.3% (37.0-47.0) Hemoglobin 10.1g/dl (12.0-16.0) INR International Normalized Ratio 1.12 Lymphocytes # 5.710^3/ul (0.8-2.9) Lymphocytes % 40.8% (15.0-51.0) Mean Corpuscular Hemoglobin 32.3pg (29.0-33.0) Mean Corpuscular Hemoglobin Concent 27.8g/dl (32.0-37.0) Mean Corpuscular Volume 116.0fl (82.0-101.0) Mean Platelet Volume 9.6fl (7.4-10.4) Monocytes # 1.610^3/ul (0.3-0.9) Monocytes % 11.7% (0.0-11.0) Neutrophils # 6.410^3/ul (1.6-7.5) Neutrophils % 45.7% (39.0-77.0) Nucleated Red Blood Cells # 0.010^3/ul (0.0-0.0) Nucleated Red Blood Cells % 0.0/100WBC (0.0-0.0) Platelet Count 42065^3/UL (140-415) Prothrombin Time 14.4Sec (12.2-14.2) Prothrombin Time Ratio 1.1 Red Blood Count 3.1310^6/ul (4.20-5.40) Red Cell Distribution Width 15.7% (11.5-14.5) White Blood Count 14.110^3/ul (4.8-10.8) FRITZ SERRANO Jun 01, 2016 18:51
--- NOTE | 2016-06-01 19:19 | HP ---
Date/Time of Note Date/Time of Note DATE: 06/01/16 TIME: 19:15 Assessment/Plan VTE Prophylaxis VTE Prophylaxis Intervention: heparin Assessment/Plan Chief Complaint/Hosp Course 78-year-old lady who was brought in via EMS to the hospital after the patient was found unresponsive at home EMS were called, no pulse, found with hypoxia, cardiac arrest, PTX. 1. Cardiac arrest - already coded x 2, suspect PEA - admit to ICU, CTS consult. 2. Pneumothorax - intubated - get pulm consult. 3. Spontaneous tension pneumothorax - see # 2, also get CTS consult. 4. Pneumomediastinum - see # 2 5. Pneumoperitoneum - see # 2 6. Acute respiratory failure with hypoxia and hypercapnia - intubated - f/u pulm rec's, duoneb's prn 7. End stage kidney disease - get renal consult 8. Hx of GI bleed - monitor 9. a fib - monitor 10. hypothyroidism - monitor 11. Hx of renal transplant - see # 7 12. OA - monitor 13. Gi ppx - PPI Overall very poor prognosis. Problems: HPI/ROS Admit Date/Time Admit Date/Time Hx of Present Illness 81-year-old woman with a history of renal transplantation, GERD, afib, HTN, OA, ESRD on HD, general debility secondary to previous gastrointestinal bleeding, anemia presenting with shortness of breath, dyspnea, hypoxia and general altered mental status from nursing home facility. Patient has end-stage kidney disease and is dialyzed on Wednesday, , Saturdays but was not dialyzed today. Patient was last seen normal at about 9 AM which was about 3 hours prior to arrival. Just prior to arrival her nurse found her dyspneic, altered, and short of breath and called 911, at the scene EMS states she had agonal breathing and hypoxia, they placed her on high flow oxygen with some improvement, blood sugar was checked at the scene and was normal, and patient was transported here. Upon arrival she was altered, hypoxic, dyspneic and could not provide HPI. Further HPI provided by family member who was later at the bedside and after reviewing past medical history. Full ROS not able to be obtained. PMH/Family/Social Social History Smoking Status: Never smoker Exam/Review of Systems Vital Signs Vitals Vital Signs Date Time Temp Pulse Resp B/P Pulse Ox O2 Delivery O2 Flow Rate FiO2 06/01/16 15:00 96 16 85/50 86 Mechanical Ventilator 06/01/16 14:30 15 06/01/16 12:14 100 Exam Exam PE: - unable to be obtained b/c pt off floor. Labs Result Diagram: 06/01/16 1215 06/01/16 1210 Medications Medications Current Medications Norepinephrine (Levophed) 250 ml @ 1.875 mls/ hr TITRATE IV Last administered on 06/01/16t 15:26; Admin Dose 1.875 MLS/HR; Start 06/01/16 at 15:00 Ondansetron HCl (Zofran Inj) 4 mg Q6H PRN IV NAUSEA AND/OR VOMITING; Start at 15:30 Acetaminophen (Tylenol Tab) 650 mg Q6H PRN PO PAIN LEVEL 1-3 OR FEVER; Start at 15:30 Acetaminophen/ Hydrocodone Bitart (Yelm (5/325)) 1 tab Q6H PRN PO MODERATE PAIN LEVEL 4-6; Start 06/01/16 at 15:30 Morphine Sulfate (morphine) 2 mg Q4H PRN IV SEVERE PAIN LEVEL 7-10; Start 06/01 at 15:30 Docusate Sodium (Colace) 100 mg Q12H PRN PO CONSTIPATION; Start 06/01/16 at 15: 30 Magnesium Hydroxide (Milk Of Mag) 30 ml DAILY PRN PO CONSTIPATION; Start at 15:30 Sodium Biphosphate/ Sodium Phosphate (Fleet Enema) 133 ml DAILY PRN [place] CONSTIPATION; Start 06/01/16 at 15:30 Pantoprazole (Protonix Iv) 40 mg DAILY@06 IV ; Start 06/02/16 at 06:00 Heparin Sodium (Porcine) 5000 unit 5,000 unit Q12 SC ; Start 06/01/16 at 21:00 Sodium Chloride (1/2 NS) 1,000 ml @ 75 mls/hr [id number] IV ; Start 06/01/16 at 15 :29 Lorazepam (Ativan) 0.5 mg Q6H PRN IV ANXIETY; Start 06/01/16 at 15:30 Vancomycin HCl (Vanco Iv Per Pharmacy) VANCOMYCIN PER PHARMACY NOTE XX ; Start 06/01/16 at 15:30 Hydralazine HCl (Apresoline) 10 mg Q6H PRN IV ELEVATED BLOOD PRESSURE; Start at 15:30 Nitroglycerin 1 tab 1 tab Q5M PRN SL ANGINA; Start 06/01/16 at 15:30 Imipenem/ Cilastatin Sodium (Primaxin 500 Mg/ 100 ml (Pmx)) 100 ml @ 100 mls/ hr Q12 IVPB ; Start 06/01/16 at 21:00 Insulin Aspart (Novolog Insulin Pen) NOVOLOG *MILD* ALGORI... Q4 SC ; Start at 17:00 Amiodarone HCl (Cordarone) 100 mg TID PO ; Start 06/01/16 at 21:00 Ascorbic Acid (Vitamin C) 250 mg DAILY PO ; Start 06/02/16 at 09:00 Bisacodyl (Dulcolax Supp) 10 mg DAILY PRN [place] CONSTIPATION; Start 06/01/16 at 15 :30 Escitalopram Oxalate (Lexapro) 10 mg DAILY PO ; Start 06/02/16 at 09:00 Folic Acid (Folic Acid) 1 mg DAILY PO ; Start 06/02/16 at 09:00 Multivit/Ca Carb/ B Cmplx/FA/Prenat (Maria A-Babatunde) 1 tab DAILY PO ; Start 06/02/16 at 09:00 Polyethylene Glycol (Miralax) 17 gm DAILY PO ; Start 06/02/16 at 09:00 Prednisone (Prednisone) 5 mg QPM PO ; Start 06/01/16 at 21:00 Pregabalin (Lyrica) 50 mg QHS PO ; Start 06/01/16 at 21:00 Miscellaneous Information 1 ea NOTE XX ; Start 06/01/16 at 16:30 Glucose (Glutose) 15 gm Q15M PRN PO DECREASED GLUCOSE; Start 06/01/16 at 16:30 Glucose (Glutose) 22.5 gm Q15M PRN PO DECREASED GLUCOSE; Start 06/01/16 at 16: 30 Dextrose (D50w Syringe) 25 ml Q15M PRN IV DECREASED GLUCOSE; Start 06/01/16 at 16:30 Dextrose (D50w Syringe) 50 ml Q15M PRN IV DECREASED GLUCOSE; Start 06/01/16 at 16:30 Glucagon (Glucagen) 1 mg Q15M PRN IM DECREASED GLUCOSE; Start 06/01/16 at 16:30 Glucose (Glutose) 15 gm Q15M PRN BUCCAL DECREASED GLUCOSE; Start 06/01/16 at 16 :30 FRITZ SERRANO Jun 01, 2016 19:19
--- NOTE | 2016-06-01 19:24 | CONS ---
DATE OF ADMISSION: 06/01/2016 DATE OF CONSULTATION: 06/01/2016 TYPE OF CONSULTATION: Nephrology. REASON FOR CONSULTATION: End-stage renal disease, hyperkalemia. PHYSICIAN REQUESTING CONSULT: Reid Humphries MD HISTORY OF PRESENT ILLNESS: This is an 81-year-old female with a past medical history of end-stage renal disease on dialysis Wednesday, , Wednesday whose primary roving changer is Dr. Landrum. T he patient has a history of kidney transplant 20 years ago, history of hypertension, dyslipidemia, m ineral bone disorder, anemia, hypothyroidism who presents to [facility] with short ness of breath. The patient upon arrival was found to have agonal breathing, hypoxic. The patient had a chest x-ray, showed findings of pneumothorax. The patient had an urgent chest tube placed and had a 50-minute code arrest due to hypotension, agonal breathing. The patient subsequently had a C T angio which showed findings of subcutaneous emphysema, right-sided thoracostomy, pneumomediastinum , no evidence of PE, moderate hiatal hernia, pneumoperitoneum. The patient was intubated. CT of th e abdomen and pelvis was also obtained which showed massive pneumoperitoneum which may be due to argenis e air dissecting through the pneumothorax. Also noted was massive subcutaneous emphysema. The brandy ent in the emergency room received IV antibiotics, was placed on IV pressors. Her laboratory data d rawn showed a sodium 141, potassium 5.6, BUN 39, creatinine 4.51 and lactic acid 10.1. In terms of the patient's renal history, the patient had a renal transplant 20 years ago which faile d, and she has been back on hemodialysis. The patient's primary roving changer is Dr. Landrum. Her last dialysis date is unknown, presumed to be Wednesday. The patient has remained on immunosuppressi ve medication with low-dose prednisone. PAST MEDICAL HISTORY: Includes hypertension, anemia, mineral bone disorder, hypothyroidism, history of AFib. PAST SURGICAL HISTORY: Status post renal transplant, status post AV fistula, status post PermCath. ALLERGIES: NO KNOWN DRUG ALLERGIES. FAMILY HISTORY: No family history of kidney disease, heart disease. SOCIAL HISTORY: Doesn't drink, smoke or do drugs. MEDICATIONS: The patient's medications have been reviewed. REVIEW OF SYSTEMS: Unable to adequately review systems as patient is intubated. Pertinent positive s obtained by reviewing medical records, speaking to hospital staff stated in HPI, otherwise negativ e. PHYSICAL EXAMINATION: VITAL SIGNS: Blood pressure is currently 100/72, respiration is 18, pulse 110. HEENT: Head is normocephalic. NECK: Supple. HEART: Regular rate. LUNGS: Diminished breath sounds at the base. ABDOMEN: Soft, nontender to palpation. No rebound, guarding. EXTREMITIES: Negative for clubbing, cyanosis. Trace edema. DERMATOLOGIC: No rashes. MUSCULOSKELETAL: No joint effusion. NEUROLOGIC: Limited exam as the patient is obtunded. LABORATORY DATA: Sodium 141, potassium 5.6, chloride 96, bicarbonate 32, BUN 39, creatinine 4.50, l actic acid 10.1. White count 14.1, hemoglobin 10.1, hematocrit 36.8 and platelet count 277. IMAGING STUDIES: Stated in HPI. ASSESSMENT AND PLAN: This is an 81-year-old female who presents with: 1. End-stage renal disease. The patient is on dialysis Wednesday, , Wednesday with access of PermCath, AV fistula. Last hemodialysis unknown. Plan is for hemodialysis today for 3 hours on 2K bath, calcium 2.5 with no ultrafiltration as the patient is hemodynamically unstable. Will monitor for daily dialytic needs. 2. Hyperkalemia secondary to end-stage renal disease. The patient will be dialyzed on a 2 potassiu m bath. 3. Metabolic gap acidosis. Etiology is secondary to lactic acidosis and end-stage renal disease. Plan is to check an ABG. Will anticipate dialysis today on 35 bicarbonate bath. Will monitor close ly. 4. Anemia of end-stage renal disease. Will monitor H and H levels. 5. Cardiac arrest. Etiology may be secondary to tension pneumothorax. The patient is currently re suscitated. Will continue to monitor. To follow up with Cardiology. 6. Pneumothorax. Underlying etiology is unclear. The patient status post chest tube placement wit h re-expansion of lungs. Will continue to monitor. Follow up with Pulmonary. May consider a CT steinberg rgery consult for chest tube management. 7. Shock. Etiology secondary to cardiac, septic. The patient is currently on pressor support, radha l continue. Continue IV antibiotics, continue gentle hydration. 8. Pneumoperitoneum. Etiology is likely from tracking of air from pneumothorax. No obvious perfor ated viscus on CT scan. Will continue to monitor. 9. History of renal transplant. Continue low-dose prednisone. 10. Mineral bone disorder. Monitor calcium, phosphorus levels. 11. Hypothyroidism. Continue Synthroid. Thank you, Dr. Humphries, for this interesting consultation. It will be a pleasure to follow patien t with you throughout the hospital course. Dictated By: COLIN YODER/ASUNCION Conf#: [id number] DID#: [id number]
[2016-06-01] MEDS ORDERED: HEPARIN 5,000 UNIT/0.5 ML SYG SC SCH (21:00)
[2016-06-01] MEDS ORDERED: predniSONE 5 MG TAB PO SCH (21:00)
[2016-06-01] MEDS ORDERED: AMIODARONE 200 MG TAB PO SCH (21:00)
[2016-06-01] MEDS ORDERED: IMIPENEM-CILAST 500MG IV (PMX) 100 ML IVPB SCH (21:00)
[2016-06-01] MEDS ORDERED: PREGABALIN 25 MG CAP PO SCH (21:00)
[2016-06-02] MEDS ORDERED: PANTOPRAZOLE 40 MG INJ IV SCH (06:00)
[2016-06-02] MEDS ORDERED: LEVOTHYROXINE 150 MCG TAB PO SCH (07:00)
[2016-06-02] MEDS ORDERED: ASCORBIC ACID 250 MG TAB PO SCH (09:00)
[2016-06-02] MEDS ORDERED: MULTIVIT/CA CARB/B CMPLX/FA TAB PO SCH (09:00)
[2016-06-02] MEDS ORDERED: FOLIC ACID 1 MG TAB PO SCH (09:00)
[2016-06-02] MEDS ORDERED: POLYETHYLENE GLYCOL 17 GM PACKET PO SCH (09:00)
[2016-06-02] MEDS ORDERED: ESCITALOPRAM 10 MG TAB PO SCH (09:00)
== END 2016-06-01 19:49 | disposition expired ==
LOC: E/R 11:58
DX: I46.9 Cardiac arrest, cause unspecified (principal); J93.0 Spontaneous tension pneumothorax; J98.2 Interstitial emphysema; K66.8 Other specified disorders of peritoneum; J96.01 Acute respiratory failure with hypoxia; I12.0 Hypertensive chronic kidney disease with stage 5 chronic kidney disease or end stage renal disease; N18.6 End stage renal disease; E03.9 Hypothyroidism, unspecified; J44.9 Chronic obstructive pulmonary disease, unspecified; R41.82 Altered mental status, unspecified; Z94.0 Kidney transplant status; Z99.2 Dependence on renal dialysis
CPT/HCPCS: 31500; 32551; 36415; 36556; 36600; 70450; 71010; 71275; 74177; 76937; 80053; 82803; 83605; 84484; 85025; 85610; 85730; 87040; 92950; 93005; 94002; 96374; 99291; J0171; J0696; J1815; J7030; Q9967; J7512